=== PATIENT | female | born 1960 | race Caucasian/White ===

== ENCOUNTER 2017-08-24 08:44 | Emergency (ER) | payer SELFPAY ==
[2013-08-07 13:42] VITALS: BMI 22.6
[~2017-08-24 08:44] MED LIST: AMITRIPTYLINE150 MG PO; NORCO 10/325 TA1 TA1 PO; PRILOSEC20 MG PO; VALIUM 2 MG TAB2 MG PO; VENTOLIN HFA18 GM INH
[2017-08-24 09:38] LABS: BASOPHILS 0.3 % (0-2); HEMATOCRIT 41.8 % (36.0-48.0); HEMOGLOBIN 13.9 g/dL (12-16); IMMATURE GRANULOCYTES 0.1 % (0-5); LYMPHOCYTES 17.2 % (15-50); MCH 30.3 pg (26.0-34.0); MCHC 33.3 g/dL (31.0-37.0); MCV 91.3 fL (80.0-100.0); MEAN PLATELET VOLUME 9.8 fL (7.4-10.4); MONOCYTES 4.6 % (2-11); NEUTROPHILS 76.8 % (40-80); PLATELET COUNT 267 10x3/uL (130-400); RBC 4.58 10x6/uL (4.00-5.40); RDW 12.7 % (11.5-14.5); WBC 7.8 10x3/uL (4.8-10.8)
[2017-08-24 10:02] LABS: APPEARANCE CLEAR (CLEAR); BILIRUBIN NEGATIVE (NEGATIVE); COLOR YELLOW (YELLOW); GLUCOSE NEGATIVE (NEGATIVE); KETONE NEGATIVE (NEGATIVE); NITRITE NEGATIVE (NEGATIVE); PROTEIN NEGATIVE (NEGATIVE); SPECIFIC GRAVITY 1.015 (1.005-1.020); UROBILINOGEN NORMAL (NORMAL)
[2017-08-24 11:03] LABS: INR 1.02 (0.85-1.17); PROTIME 13.2 SECONDS (11.6-15.0)
== END 2017-08-24 11:46 | disposition home or self-care (01) ==
LOC: D.ER 08:44
PROVIDERS: Emergency Medicine
DX: K92.2 Gastrointestinal hemorrhage, unspecified (principal); J44.9 Chronic obstructive pulmonary disease, unspecified; F17.200 Nicotine dependence, unspecified, uncomplicated

== ENCOUNTER 2019-03-09 17:11 | Inpatient (IN) | payer MEDICARE ==
[~2019-03-09] VITALS: Ht 165.1 cm; Wt 72.1 kg
[2019-03-09 18:15] VITALS: BP 125/82; BMI 26.5
[2019-03-09 18:39] LABS: BASOPHILS 0.4 % (0-2); EOSINOPHILS 4.1 % (0-7); HEMATOCRIT 37.7 % (36.0-48.0); HEMOGLOBIN 12.4 g/dL (12-16); IMMATURE GRANULOCYTES 3.8 % (0-5); LYMPHOCYTES 20.9 % (15-50); MCH 30.8 pg (26.0-34.0); MCHC 32.9 g/dL (31.0-37.0); MCV 93.5 fL (80.0-100.0); MEAN PLATELET VOLUME 9.3 fL (7.4-10.4); MONOCYTES 8.2 % (2-11); NEUTROPHILS 62.6 % (40-80); PLATELET COUNT 303 10x3/uL (130-400); RBC 4.03 10x6/uL (4.00-5.40); RDW 13.7 % (11.5-14.5); WBC 13.7 10x3/uL (4.8-10.8)
[2019-03-09 19:04] LABS: ANION GAP 9.7 mmol/L (8-16); BILIRUBIN - TOTAL 0.19 mg/dL (0.2-1.3); CALCIUM 8.5 mg/dL (8.5-10.1); CARBON DIOXIDE 31.9 mmol/L (21.0-32.0); CREATININE - SERUM 1.1 mg/dL (0.6-1.3); POTASSIUM - SERUM 3.6 mmol/L (3.5-5.1); PROTEIN - SERUM 6.2 g/dL (6.4-8.2)
[2019-03-09] MEDS ORDERED: XANAX1 MG PO (19:30)
[2019-03-09] MEDS ORDERED: PHENERGAN25 M1 PO (19:31)
[2019-03-09] MEDS ORDERED: MIRALAX17 GM PO (19:32)
[2019-03-09] MEDS ORDERED: HALDOL5 MG PO (19:33)
[2019-03-09] MEDS ORDERED: AMBIEN10 MG PO (19:33)
[2019-03-09] MEDS ORDERED: WELLBUTRIN SR150 MG PO (19:34)
[2019-03-09 20:00] VITALS: BP 115/52
--- NOTE | 2019-03-09 20:00 | NUR ---
PT SITTING UP IN BED, NO SIGNS OF DISTRESS. AUDIBLE WHEEZING HEARD. IV LEFT HAND LEAKING. DC'D WITH CATHETER TIP INTACT. RESITED 22G IV RIGHT HAND X1 ATTEMPT. INFUSING NS @ 75. RESP CAME TO BEDSIDE TO GIVE BREATHING TREATMENT. ALERT AND ORIENTED X4. REQUESTING PAIN MEDICATION FOR PAIN 08/03 IN BACK. PAGEValentina LÓPEZ, RECIEVED ORDERS FOR NORCO 10. GAVE PT ORDERED AND ZOFRAN PER REQUEST, PT STATED SHE WAS NAUSEAS. O2 3L/NC, SOB. INFORMED PT WE NEEDED URINE SAMPLE NEXT TIME SHE WENT TO BATHROOM. VERBALIZED UNDERSTANDING. CL IN REACH, WILL CONT TO MONITOR
[2019-03-10] VITALS: BP 101/56
--- NOTE | 2019-03-10 02:30 | NUR ---
PT REQUESTED AND GIVEN NORCO FOR PAIN 8/10 IN BACK. PT STATES IT IS WORSE WHEN COUGHING. GAVE ZOFRAN FOR NAUSEA. DENIES OTHER NEEDS AT THIS TIME. CL IN REACH, WILL CONT TO MONITOR
[2019-03-10 02:31] LABS: APPEARANCE CLEAR (CLEAR); BILIRUBIN NEGATIVE (NEGATIVE); COLOR YELLOW (YELLOW); GLUCOSE 50 mg/dL (NEGATIVE); KETONE NEGATIVE (NEGATIVE); NITRITE NEGATIVE (NEGATIVE); PROTEIN NEGATIVE (NEGATIVE); UROBILINOGEN NORMAL (NORMAL)
[2019-03-10 04:00] VITALS: BP 102/64
--- NOTE | 2019-03-10 05:00 | NUR ---
PT STATES THIS NIGHT HAS BEEN THE BEST SHE HAS SLEPT IN WEEKS. STATES SHE HAS NOT BEEN SLEEPING WELL DUE TO PAIN AND COUGHING. REQUESTED AND GIVEN JELLO AND COLA. WITHOUT OTHER NEEDS. CL IN REACH, WILL CONT TO MONITOR
[2019-03-10 09:49] VITALS: BP 119/67
[2019-03-10 10:51] LABS: BASOPHILS 0.1 % (0-2); EOSINOPHILS 0 % (0-7); HEMATOCRIT 36.3 % (36.0-48.0); HEMOGLOBIN 11.7 g/dL (12-16); IMMATURE GRANULOCYTES 1.8 % (0-5); LYMPHOCYTES 5.7 % (15-50); MCH 30.2 pg (26.0-34.0); MCHC 32.2 g/dL (31.0-37.0); MCV 93.6 fL (80.0-100.0); MEAN PLATELET VOLUME 9.2 fL (7.4-10.4); MONOCYTES 1.5 % (2-11); NEUTROPHILS 90.9 % (40-80); PLATELET COUNT 284 10x3/uL (130-400); RBC 3.88 10x6/uL (4.00-5.40); RDW 13.5 % (11.5-14.5); WBC 11.6 10x3/uL (4.8-10.8)
[2019-03-10 11:00] LABS: ALBUMIN 2.6 g/dL (3.4-5.0); ANION GAP 12.8 mmol/L (8-16); BILIRUBIN - TOTAL 0.19 mg/dL (0.2-1.3); CALCIUM 8.5 mg/dL (8.5-10.1); CARBON DIOXIDE 27.4 mmol/L (21.0-32.0); PROTEIN - SERUM 5.8 g/dL (6.4-8.2)
[2019-03-10 11:01] LABS: POTASSIUM - SERUM 4.2 mmol/L (3.5-5.1)
[2019-03-10 14:38] VITALS: BP 124/58
--- NOTE | 2019-03-10 17:09 | NUR ---
I have reviewed this patient and I concur with the Shift Assessment completed by the Licensed Practical Nurse today this shift.
[2019-03-10 18:02] VITALS: BP 115/64
[2019-03-10 19:53] VITALS: BP 112/64
--- NOTE | 2019-03-10 23:12 | NUR ---
PT IV RIGHT HAND BURNING AND PAINFUL TO TOUCH. SOME REDNESS AND SWELLING AROUND SITE. STOPPED INFUSION, DC'D WITH CATHETER TIP INTACT. RESITED 22G IV X1 ATTEMPT TO LEFT WRIST. WITHOUT OTHER NEEDS AT THIS TIME. CL IN REACH
[2019-03-11] VITALS: BP 114/58
--- NOTE | 2019-03-11 03:37 | NUR ---
I have reviewed this patient and I concur with the Shift Assessment completed by the Licensed Practical Nurse today this shift.
[2019-03-11 04:00] VITALS: BP 103/64
[2019-03-11 06:52] LABS: ALBUMIN 2.4 g/dL (3.4-5.0); ALKALINE PHOSPHATASE 68 U/L (46-116); ALT (SGPT) 74 U/L (10-68); BILIRUBIN - TOTAL 0.16 mg/dL (0.2-1.3); CALC OSMOLALITY 286 mosm/kg (275-300); CALCIUM 8.3 mg/dL (8.5-10.1); CARBON DIOXIDE 28.3 mmol/L (21.0-32.0); CHLORIDE - SERUM 106 mmol/L (98-107); CREATININE - SERUM 0.8 mg/dL (0.6-1.3); GLUCOSE 150 mg/dL (74-106); MAGNESIUM - SERUM 2.1 mg/dL (1.8-2.4); PHOSPHOROUS 3.4 mg/dL (2.5-4.9); POTASSIUM - SERUM 4.4 mmol/L (3.5-5.1); PROTEIN - SERUM 5.4 g/dL (6.4-8.2); SODIUM 141 mmol/L (136-145); UREA NITROGEN 22 mg/dL (7-18); eGFR NON AFRICAN AMERICAN 78 mL/min (90-120)
[2019-03-11 07:46] LABS: HEMATOCRIT 33.9 % (36.0-48.0); HEMOGLOBIN 10.7 g/dL (12-16); MCH 29.9 pg (26.0-34.0); MCHC 31.6 g/dL (31.0-37.0); MCV 94.7 fL (80.0-100.0); MEAN PLATELET VOLUME 9.7 fL (7.4-10.4); PLATELET COUNT 292 10x3/uL (130-400); RBC 3.58 10x6/uL (4.00-5.40); RDW 13.7 % (11.5-14.5); WBC 20.9 10x3/uL (4.8-10.8)
[2019-03-11 08:14] LABS: LYMPHOCYTES 3 % (15-50); MONOCYTES 3 % (2-11); NEUTROPHILS 92 % (40-80); PLATELET ESTIMATE NORMAL
[2019-03-11 09:34] VITALS: BP 120/74
[2019-03-11 13:09] VITALS: BP 125/68
[2019-03-11 16:26] VITALS: BP 117/68; BP 134/67
[2019-03-11 19:52] VITALS: BP 120/70
--- NOTE | 2019-03-12 01:30 | NUR ---
I have reviewed this patient and I concur with the Shift Assessment completed by the Licensed Practical Nurse today this shift.
[2019-03-12 04:00] VITALS: BP 114/63
[2019-03-12 05:29] LABS: BASOPHILS 0.1 % (0-2); EOSINOPHILS 0.1 % (0-7); HEMOGLOBIN 10.5 g/dL (12-16); IMMATURE GRANULOCYTES 2.2 % (0-5); LYMPHOCYTES 5.7 % (15-50); MCH 30.1 pg (26.0-34.0); MCHC 31.8 g/dL (31.0-37.0); MCV 94.6 fL (80.0-100.0); MEAN PLATELET VOLUME 9.2 fL (7.4-10.4); MONOCYTES 4.5 % (2-11); NEUTROPHILS 87.4 % (40-80); PLATELET COUNT 276 10x3/uL (130-400); RBC 3.49 10x6/uL (4.00-5.40); RDW 14.2 % (11.5-14.5); WBC 19.4 10x3/uL (4.8-10.8)
[2019-03-12 05:42] LABS: ALBUMIN 2.3 g/dL (3.4-5.0); ALKALINE PHOSPHATASE 62 U/L (46-116); ALT (SGPT) 85 U/L (10-68); BILIRUBIN - TOTAL 0.14 mg/dL (0.2-1.3); CALCIUM 8.4 mg/dL (8.5-10.1); CARBON DIOXIDE 29.5 mmol/L (21.0-32.0); CHLORIDE - SERUM 108 mmol/L (98-107); CREATININE - SERUM 0.8 mg/dL (0.6-1.3); GLUCOSE 148 mg/dL (74-106); POTASSIUM - SERUM 4.7 mmol/L (3.5-5.1); PROTEIN - SERUM 5.3 g/dL (6.4-8.2); SODIUM 141 mmol/L (136-145); eGFR NON AFRICAN AMERICAN 78 mL/min (90-120)
[2019-03-12 05:52] LABS: CALC OSMOLALITY 289 mosm/kg (275-300); UREA NITROGEN 30 mg/dL (7-18)
--- NOTE | 2019-03-12 09:00 | NUR ---
PT RESTING NO SIGNS OF DISTRESS NOTED, FAMILY AT BEDSIDE CL IN REACH
[2019-03-12 09:03] VITALS: BP 109/65
[2019-03-12 12:40] VITALS: BP 109/61
--- NOTE | 2019-03-12 15:14 | NUR ---
I have reviewed this patient and I concur with the Shift Assessment completed by the Licensed Practical Nurse today this shift.
[2019-03-12 17:09] VITALS: BP 101/62
--- NOTE | 2019-03-12 19:30 | NUR ---
ALERT AND ORIENTED. HOB ELEVATED. C/O OF BACK PAIN AND STATES "CHRONIC". IMMEDIATELY INQUIRES ABOUT "HYDROS AND COUGH SYRUP" EXPLAINED TIME ALLOTMENTS AND ALSO THAT TESSALON PEARLE AND TORADOL WERE SCHEDULED AND THOSE BOTH HELP WITH PAIN AND COUGHING. PATIENT STATES "I WANT ALL MY MEDICATIONS AT ONE TIME. I WANT TO BE KNOCKED OUT SO I CAN SLEEP." MEDICATION EDUCATION PROVIDED BUT PATIENT VERY PASSIVE WITH TEACHINGS. STATES "WELL WHEN WHAT YOU GIVE ME DOESN'T WORK CAN I HAVE MY OTHER MEDS IN AN HOUR?" INSTRUCTED PT ON SAFE ADMINISTRATION AND THAT THIS NURSE WOULD MONITOR PAIN AND ANXIETY THROUGH OUT NIGHT. PT THEN ASKED ABOUT XANAX AND AMBIEN. STATES "AMBIEN DOESNT WORK IF YOU DONT HAVE SOMETHING TO GO WITH IT. I NEED MY XANAX AND NORCO AT THE SAME TIME." MEDICATION TEACHING APPEARS TO BE UNSUCCESSFUL. INSTRUCTED PATIENT THAT THIS NURSE WILL PROVIDE MEDICATION DEEMED APPROPRIATE PER HOSPITAL POLICY AND/OR DR ORDERS.
[2019-03-12 20:00] VITALS: BP 121/71
--- NOTE | 2019-03-12 23:01 | NUR ---
ADMINSTERED NORCO PER PRN ORDER. PT STATES PAIN IS A 9 DESPITE TORADOL AND AMBIEN ADMINISTRATION 1.5 HOURS AGO. PT REQUESTED TUSSONIEX AT THE SAME TIME INSTRUCTED PATIENT TO ALLOW TIME LAPSE INBETWEEN PAIN PILL AND ORAL SOLUTION BOTH CONTAIN HYDROCODONE/ACETAMINOPHEN. PT AGGRAVATED. STATES SHE WILL TAKE "WHATEVER IS STRONGER!" CALL LIGHT IN REACH.
[2019-03-13] VITALS: BP 130/61
--- NOTE | 2019-03-13 02:13 | NUR ---
I have reviewed this patient and I concur with the Shift Assessment completed by the Licensed Practical Nurse today this shift.
[2019-03-13 03:00] VITALS: BP 121/70
[2019-03-13 06:03] LABS: BASOPHILS 0.1 % (0-2); EOSINOPHILS 0 % (0-7); HEMATOCRIT 33.1 % (36.0-48.0); HEMOGLOBIN 10.6 g/dL (12-16); IMMATURE GRANULOCYTES 3.1 % (0-5); MCH 30.2 pg (26.0-34.0); MCV 94.3 fL (80.0-100.0); MEAN PLATELET VOLUME 9.2 fL (7.4-10.4); MONOCYTES 4.4 % (2-11); NEUTROPHILS 86.4 % (40-80); PLATELET COUNT 270 10x3/uL (130-400); RBC 3.51 10x6/uL (4.00-5.40); RDW 14.4 % (11.5-14.5); WBC 17.2 10x3/uL (4.8-10.8)
[2019-03-13 06:27] LABS: ALBUMIN 2.2 g/dL (3.4-5.0); ALKALINE PHOSPHATASE 57 U/L (46-116); ALT (SGPT) 77 U/L (10-68); BILIRUBIN - TOTAL 0.18 mg/dL (0.2-1.3); CALC OSMOLALITY 290 mosm/kg (275-300); CALCIUM 8.5 mg/dL (8.5-10.1); CARBON DIOXIDE 30.4 mmol/L (21.0-32.0); CHLORIDE - SERUM 108 mmol/L (98-107); CREATININE - SERUM 0.8 mg/dL (0.6-1.3); GLUCOSE 151 mg/dL (74-106); POTASSIUM - SERUM 4.8 mmol/L (3.5-5.1); PROTEIN - SERUM 5.1 g/dL (6.4-8.2); SODIUM 142 mmol/L (136-145); UREA NITROGEN 26 mg/dL (7-18); eGFR NON AFRICAN AMERICAN 78 mL/min (90-120)
[2019-03-13 08:46] VITALS: BP 112/69
[2019-03-13 12:30] VITALS: BP 115/72
--- NOTE | 2019-03-13 13:34 | HP ---
PATIENT: NEDA KEYS MEDICAL RECORD: [id number] ACCOUNT: [id number] LOCATION:D.MS [id number] : 58 ADMISSION DATE: 03/09/19 PCP: CHLOÉ CANTRELL MD HISTORY AND PHYSICAL EXAMINATION HISTORY OF PRESENT ILLNESS: The patient is a 58-year-old white female who was first seen in our clinic towards the end of January with COPD exacerbation. She came back in a week later and was sent to [facility], where she was seen in the Emergency Room and later discharged. She was seen back again a few days ago with worsening symptoms again, declined hospitalization at that time. She comes back in today with marked shortness of breath and audible wheezing. Her chest x-ray reveals no obvious infiltrates. She may have a little pleural effusion. She is on chronic O2 at home. She has never seen a manager of training. She continues to smoke. She is going to require hospitalization again. She is going to be a direct admit. PAST MEDICAL HISTORY: Significant for known COPD, tobacco use, bipolar disorder, lupus, GERD, allergies, anxiety, hyperlipidemia, and chronic insomnia. PAST SURGICAL HISTORY: Previous surgeries include hysterectomy, it looks like. ALLERGIES: AMOXICILLIN. HOME MEDICATIONS: Include DuoNeb updrafts, Nexium, fluticasone, bupropion 150 mg at bedtime, Haldol 5 mg everyday, Combivent inhaler, alprazolam t.i.d., Linville 5 p.r.n., Ventolin inhaler, Wixela Inhub inhaler, simvastatin 20 mg a day, and vitamin D. She has recently been treated with p.o. prednisone and Zithromax. FAMILY HISTORY: Significant for COPD and heart disease. SOCIAL HISTORY: The patient is a smoker. REVIEW OF SYSTEMS: Uncertain of any fever. She is having shortness of breath, wheezing, productive cough, and some right-sided chest pain that is worse with inspiration. PHYSICAL EXAMINATION: VITAL SIGNS: Height 5 feet 5 inches and weight 161. BP 120/84, sat is 92% on 3 liters, pulse is 92, and temperature is 98.4. GENERAL: She is moderately tachypneic with audible wheezes. HEENT: Sclerae nonicteric. HEART: Regular. LUNGS: Bilateral wheezes. ABDOMEN: Soft. No edema. IMPRESSION: COPD exacerbation with failure to treat as an outpatient, tobacco use, history of bipolar disease, history of lupus, and GERD. PLAN: Direct admit to [place]. Pulmonary consult. Pulmonary toilet. See orders for rest of plan. locker room supervisor has been notified and orders have been faxed. TRANSINT:[id number] Voice Confirmation ID: [id number] DOCUMENT ID: [id number] HISTORY AND PHYSICAL [id number] NEDA KEYS MATTHEW DO at 1334 CC: [id number] DICTATION DATE: 03/09/19 1611 PARALEGAL SUPERVISOR: 03/09/19 1716 ADM IN [facility] [address] [id number]
[2019-03-13 14:08] VITALS: Ht 165.1 cm; Wt 72.1 kg
--- NOTE | 2019-03-13 15:58 | MORECARE ---
CASE MANAGEMENT DISCHARGE SUMMARY PATIENT: NEDA KEYS UNIT: [id number] ADM DATE: 03/09/19 AGE: 58 : 58 SEX: F ROOM/BED: D.2235 AUTHOR: GABRIEL BROWN PHYSICIAN: REFERRING PHYSICIAN: CHLOÉ CANTRELL MD DATE OF SERVICE: 03/13/19 Discharge Plan Patient Name: [facility]EDA KEYS [facility] [facility] 1960 Planned Disposition: Home Anticipated Discharge Date: Discharge Date: Expected LOS: Initial Reviewer: [email or web address] Initial Review Date: 03/13/2019 Generated: 03/13/19 4:58 pm DCPIA - Discharge Planning Initial Assessment Updated by [email or web address]: Kimberly Cornejo on 03/13/19 3:57 pm * Is the patient Alert and Oriented? Yes * How many steps to enter\exit or inside your home? 5/0 * PCP Dr. Tyler * Pharmacy [facility] in [place] * Preadmission Environment Home with Family * ADLs Independent * Equipment Nebulizer Other Oxygen * Other Equipment Portable oxygen CPAP * List name and contact numbers for known caregivers / representatives who currently or will assist patient after discharge: Shawna Limon [facility] - [phone] Suellen Ruiz [facility] - [phone] * Verbal permission to speak to the caregivers and representatives has been obtained from the patient. Yes * Community resources currently utilized None * Additional services required to return to the preadmission environment? No * Can the patient safely return to the preadmission environment? Yes * Has this patient been hospitalized within the prior 30 days at any hospital? No Patient Name: NEDA KEYS Page [id number] at 1558 All edits/amendments must be made on the electronic document DICTATION DATE: 03/13/191557 MARKET RESEARCH CONSULTANT: CHRISTIAN 03/13/191557 RPT#: [id number] DC DATE: STATUS: ADM IN [facility] [address] [place] [address] END OF REPORT
--- NOTE | 2019-03-13 16:05 | MORECARE ---
CASE MANAGEMENT DISCHARGE SUMMARY PATIENT: NEDA KEYS UNIT: [id number] ADM DATE: 03/09/19 AGE: 58 : 58 SEX: F ROOM/BED: D.2235 AUTHOR: KEVIN,DOC PHYSICIAN: REFERRING PHYSICIAN: CHLOÉ CANTRELL MD DATE OF SERVICE: 03/13/19 Discharge Plan Patient Name: NEDA KEYS [facility]:[place] : 1960 Planned Disposition: Home Anticipated Discharge Date: Discharge Date: Expected LOS: Initial Reviewer: [email or web address] Initial Review Date: 03/13/2019 Generated: 03/13/19 5:05 pm Comments DCP- Discharge Planning Updated by [id number]: Kimberly Cornejo on 03/13/19 3:[address] Patient Name: NEDA KEYS Admission Status: Elective Accout number: [id number] Admission Date: 03-09-2019 : 1960 Admission Diagnosis:CHRONIC OBSTRUCTIVE PULMONARY DISEASE W (ACUTE) EXACERB Attending: CHLOÉ TYLER Current LOS: 4 Anticipated DC Date: Planned Disposition: Home Primary Insurance: MEDICARE A & B Discharge Planning Comments: CM met with patient to complete initial dc planning assessment. CM educated patient on the CM role and verbal consent given by patient to complete assessment. Patient lives at home with her son. At discharge patient plans to return and feels this is a safe discharge. CM discussed availability of home health, rehab services, and medical equipment. Patient denied known discharge needs at this time. She states she has CPAP, nebulizer, oxygen and portable oxygen and [employer] is her [employer] company. CM will continue to follow and will assist as needed with dc plans/needs. Tape Sewing Machine Operator: Kimberly Cornejo DCPIA - Discharge Planning Initial Assessment Updated by [email or web address]: Kimberly Cornejo on 03/13/19 3:57 pm * Is the patient Alert and Oriented? Yes * How many steps to enter\exit or inside your home? 5/0 * PCP Dr. Tyler * Pharmacy [facility] in [place] * Preadmission Environment Home with Family * ADLs Independent * Equipment Nebulizer Other Oxygen * Other Equipment Portable oxygen CPAP * List name and contact numbers for known caregivers / representatives who currently or will assist patient after discharge: Shawna Limon - DTR - [phone] Suellen Joseph - friend - [phone] * Verbal permission to speak to the caregivers and representatives has been obtained from the patient. Yes * Community resources currently utilized None * Additional services required to return to the preadmission environment? No * Can the patient safely return to the preadmission environment? Yes * Has this patient been hospitalized within the prior 30 days at any hospital? No Last DP export: 03/13/19 2:58 p Patient Name: NEDA KEYS Page 36739 at 1605 All edits/amendments must be made on the electronic document DICTATION DATE: 03/13/191604 CHIEF INNOVATION OFFICER: CHRISTIAN 03/13/191604 RPT#: [id number] DC DATE: STATUS: ADM IN [facility] [address] [place] [address] END OF REPORT
[2019-03-13 17:01] VITALS: BP 124/57
[2019-03-13 21:31] VITALS: BP 124/70
[2019-03-14 00:18] VITALS: BP 113/71
--- NOTE | 2019-03-14 03:28 | NUR ---
IV INFULTRATED. RESITED IV LT HAND 20G. ATTEMPTS X1. PT TOLERATED WELL.
[2019-03-14 05:03] VITALS: BP 115/61
[2019-03-14 05:51] LABS: BASOPHILS 0.1 % (0-2); EOSINOPHILS 0 % (0-7); HEMOGLOBIN 11.3 g/dL (12-16); IMMATURE GRANULOCYTES 4.5 % (0-5); LYMPHOCYTES 7.6 % (15-50); MCH 29.6 pg (26.0-34.0); MCHC 32.3 g/dL (31.0-37.0); MCV 91.6 fL (80.0-100.0); MEAN PLATELET VOLUME 9.4 fL (7.4-10.4); NEUTROPHILS 82.8 % (40-80); PLATELET COUNT 285 10x3/uL (130-400); RBC 3.82 10x6/uL (4.00-5.40); RDW 14.3 % (11.5-14.5); WBC 15.7 10x3/uL (4.8-10.8)
--- NOTE | 2019-03-14 05:54 | NUR ---
I have reviewed this patient and I concur with the Shift Assessment completed by the Licensed Practical Nurse today this shift.
--- NOTE | 2019-03-14 05:55 | NUR ---
I have reviewed this patient and I concur with the Shift Assessment completed by the Licensed Practical Nurse today this shift.
[2019-03-14 06:35] LABS: ALBUMIN 2.3 g/dL (3.4-5.0); ALKALINE PHOSPHATASE 55 U/L (46-116); ALT (SGPT) 68 U/L (10-68); BILIRUBIN - TOTAL 0.29 mg/dL (0.2-1.3); CALC OSMOLALITY 288 mosm/kg (275-300); CALCIUM 8.2 mg/dL (8.5-10.1); CARBON DIOXIDE 31.1 mmol/L (21.0-32.0); CHLORIDE - SERUM 104 mmol/L (98-107); CREATININE - SERUM 0.8 mg/dL (0.6-1.3); GLUCOSE 140 mg/dL (74-106); POTASSIUM - SERUM 4.2 mmol/L (3.5-5.1); PROTEIN - SERUM 5.3 g/dL (6.4-8.2); SODIUM 141 mmol/L (136-145); UREA NITROGEN 30 mg/dL (7-18); eGFR NON AFRICAN AMERICAN 78 mL/min (90-120)
[2019-03-14 08:14] LABS: IMMUNOGLOBULIN A 208 mg/dL (87-352)
[2019-03-14 08:43] VITALS: BP 133/82
[2019-03-14] MEDS ORDERED: DALIRESP500 MCG PO ×2 (11:35→11:44)
[2019-03-14] MEDS ORDERED: FLUTICASONE PRO16 GM NASAL (11:36)
[2019-03-14] MEDS ORDERED: PULMICORT0.5 MG/21 UPD (11:44)
[2019-03-14] MEDS ORDERED: DOXYCYCLINE HY100 M2 PO (11:44)
[2019-03-14] MEDS ORDERED: SINGULAIR10 MG PO (11:44)
[2019-03-14] MEDS ORDERED: PREDNISONE10 MG PO (11:47)
--- NOTE | 2019-03-14 12:32 | MORECARE ---
CASE MANAGEMENT DISCHARGE SUMMARY PATIENT: NEDA KEYS UNIT: [id number] ADM DATE: 03/09/19 AGE: 58 : 58 SEX: F ROOM/BED: D.2235 AUTHOR: KEVIN,DOC PHYSICIAN: REFERRING PHYSICIAN: CHLOÉ CANTRELL MD DATE OF SERVICE: 03/14/19 Discharge Plan Patient Name: NEDA KEYS Facility[facility]:[place] : 1960 Planned Disposition: Home Anticipated Discharge Date: Discharge Date: Expected LOS: Initial Reviewer: [email or web address] Initial Review Date: 03/13/2019 Generated: 03/14/19 1:32 pm Comments DCP- Discharge Planning Updated by [email or web address]: Kimberly Cornejo on 03/14/19 11:[address] Patient Name: NEDA KEYS Encounter No: [id number] : 1960 Primary Insurance: MEDICARE A & B Anticipated DC Date: Planned Disposition: Home External Planned Provider: : DCP follow-up note: Patient and family in agreement with discharge plan. No changes to plan. Family in room to take her home. Denies needs. No needs identified. She has portable oxygen in room for transport home. Case management will follow and assist as needed. Kimberly Cornejo DCP- Discharge Planning Updated by [id number]: Kimberly Conrejo on 03/13/19 3:[address] Patient Name: NEDA KEYS Admission Status: Elective Accout number: [id number] Admission Date: 03-09-2019 : 1960 Admission Diagnosis:CHRONIC OBSTRUCTIVE PULMONARY DISEASE W (ACUTE) EXACERB Attending: CHLOÉ TYLER Current LOS: 4 Anticipated DC Date: Planned Disposition: Home Primary Insurance: MEDICARE A & B Discharge Planning Comments: CM met with patient to complete initial dc planning assessment. CM educated patient on the CM role and verbal consent given by patient to complete assessment. Patient lives at home with her son. At discharge patient plans to return and feels this is a safe discharge. CM discussed availability of home health, rehab services, and medical equipment. Patient denied known discharge needs at this time. She states she has CPAP, nebulizer, oxygen and portable oxygen and [employer] is her [employer] company. CM will continue to follow and will assist as needed with dc plans/needs. Fur Storage Clerk: Kimberly Chantal DCPIA - Discharge Planning Initial Assessment Updated by [email or web address]: Kimberly Cornejo on 03/13/19 3:57 pm * Is the patient Alert and Oriented? Yes * How many steps to enter\exit or inside your home? 5/0 * PCP Dr. Tyler * Pharmacy [facility] in [place] * Preadmission Environment Home with Family * ADLs Independent * Equipment Nebulizer Other Oxygen * Other Equipment Portable oxygen CPAP * List name and contact numbers for known caregivers / representatives who currently or will assist patient after discharge: Shawna Limon - DTR - [phone] Suellen Ruiz [facility] - [phone] * Verbal permission to speak to the caregivers and representatives has been obtained from the patient. Yes * Community resources currently utilized None * Additional services required to return to the preadmission environment? No * Can the patient safely return to the preadmission environment? Yes * Has this patient been hospitalized within the prior 30 days at any hospital? No Coverage Notice Reviewer: [email or web address] - Kimberly Cornejo Notice Issued Date-Time: 03/14/2019 12:28 Notice Type: IM Discharge Notice Notice Delivered To: Patient Relationship to Patient: Self Clinique Counter Manager Name: Delivery Method: HAND - Hand Delivered Celina Days: Prior Verbal Notification: Recipient Understood Notice: Yes Recipient Signature: Yes Med Rec Note Co-signed by Attending: Coverage Notice Comment: IMM explained, signed, given, placed copy in MR Last DP export: 03/13/19 3:05 p Patient Name: NEDA KEYS Page 68211 at 1232 All edits/amendments must be made on the electronic document DICTATION DATE: 03/14/19 1232 MELTER SUPERVISOR ELECTRIC ARC FURNACE: CHRISTIAN 03/14/19 1232 RPT#: [id number] DC DATE: STATUS: ADM IN [facility] [address] [place] [address] END OF REPORT
--- NOTE | 2019-03-14 13:21 | NUR ---
DISCHARGE INSTRUCTIONS GIVEN. PATIENT VERBALIZED UNDERSTANDING. IV THERAPY DC'ED WITH TIP INTACT. WHEELED OUT BY FAMILY
[2019-03-15 15:12] LABS: IGG SUBCLASS 1 412 mg/dL (248-810); IGG SUBCLASS 2 93 mg/dL (130-555); IGG SUBCLASS 3 26 mg/dL (15-102); IGG SUBCLASS 4 12 mg/dL (2-96); IMMUNOGLOBULIN G 682 mg/dL (700-1600)
== END 2019-03-14 13:22 | disposition home or self-care (01) | DRG 190 ==
LOC: D.MS 17:11
PROVIDERS: Emergency Medicine; Family Medicine; Internal Medicine Pulmonary Disease; ADMIT Family Medicine; ATTEND Family Medicine
DX: J44.1 Chronic obstructive pulmonary disease with (acute) exacerbation (principal); J96.01 Acute respiratory failure with hypoxia; J18.9 Pneumonia, unspecified organism; F17.213 Nicotine dependence, cigarettes, with withdrawal; J47.0 Bronchiectasis with acute lower respiratory infection; Z99.81 Dependence on supplemental oxygen; Z87.891 Personal history of nicotine dependence; F31.9 Bipolar disorder, unspecified; K21.9 Gastro-esophageal reflux disease without esophagitis; E78.5 Hyperlipidemia, unspecified

== ENCOUNTER 2019-07-16 23:38 | Emergency (ER) | payer MEDICARE ==
[~2019-07-16] VITALS: Ht 165.1 cm; Wt 65.9 kg
[~2019-07-16 23:38] MED LIST changes: +AMBIEN10 MG PO; +DALIRESP500 MCG PO; +DOXYCYCLINE HY100 M2 PO; +FLUTICASONE PRO16 GM NASAL; +HALDOL5 MG PO; +MIRALAX17 GM PO; +PHENERGAN25 M1 PO; +PREDNISONE10 MG PO; +PULMICORT0.5 MG/21 UPD; +SINGULAIR10 MG PO; +WELLBUTRIN SR150 MG PO; +XANAX1 MG PO
[2019-07-16 23:43] VITALS: Ht 165.1 cm; Wt 65.9 kg
[2019-07-17 00:05] LABS: HEMATOCRIT 39.2 % (36.0-48.0); HEMOGLOBIN 12.9 g/dL (12-16); LYMPHOCYTES 33.2 % (15-50); MCH 29.1 pg (26.0-34.0); MCHC 32.9 g/dL (31.0-37.0); MCV 88.3 fL (80.0-100.0); MEAN PLATELET VOLUME 8.5 fL (7.4-10.4); NEUTROPHILS 36.1 % (40-80); PLATELET COUNT 334 10x3/uL (130-400); RBC 4.44 10x6/uL (4.00-5.40); RDW 12.5 % (11.5-14.5); WBC 5.3 10x3/uL (4.8-10.8)
[2019-07-17 00:13] LABS: APTT 26.6 SECONDS (22.8-39.4); INR 1.01 (0.85-1.17); PROTIME 12.8 SECONDS (11.6-15.0)
[2019-07-17 00:22] LABS: ALBUMIN 2.9 g/dL (3.4-5.0); ALKALINE PHOSPHATASE 95 U/L (46-116); ALT (SGPT) 18 U/L (10-68); BILIRUBIN - TOTAL 0.16 mg/dL (0.2-1.3); CALC OSMOLALITY 285 mosm/kg (275-300); CALCIUM 8.4 mg/dL (8.5-10.1); CARBON DIOXIDE 31.1 mmol/L (21.0-32.0); CHLORIDE - SERUM 108 mmol/L (98-107); CREATININE - SERUM 0.7 mg/dL (0.6-1.3); POTASSIUM - SERUM 3.9 mmol/L (3.5-5.1); PROTEIN - SERUM 6.3 g/dL (6.4-8.2); SODIUM 144 mmol/L (136-145); UREA NITROGEN 11 mg/dL (7-18); eGFR NON AFRICAN AMERICAN 90 mL/min (90-120)
[2019-07-17 00:32] LABS: GLUCOSE 92 mg/dL (74-106)
[2019-07-17 00:37] LABS: CKMB 0.6 U/L (0.0-3.6); CREATINE KINASE 24 UL (21-215)
[2019-07-17 00:38] LABS: PRO BNP 0 pg/mL (0-125); TROPONIN-I < 0.017 ng/mL (0.000-0.060)
[2019-07-17] MEDS ORDERED: TESSALON PERLE100 MG PO (03:00)
[2019-07-17] MEDS ORDERED: HYDROCODON-ACE1 EAC7 PO (03:02)
[2019-07-17 04:00] VITALS: BP 95/53
== END 2019-07-17 04:00 | disposition home or self-care (01) ==
LOC: D.ER 23:38
PROVIDERS: Emergency Medicine
DX: J44.9 Chronic obstructive pulmonary disease, unspecified (principal); R91.1 Solitary pulmonary nodule; R06.02 Shortness of breath; F17.200 Nicotine dependence, unspecified, uncomplicated

== ENCOUNTER 2021-02-04 09:56 | Emergency (ER) | payer MEDICARE ==
[~2021-02-04] VITALS: Ht 165.1 cm; Wt 65.9 kg
[~2021-02-04 09:56] MED LIST changes: +HYDROCODON-ACE1 EAC7 PO; +TESSALON PERLE100 MG PO
[2021-02-04 10:08] VITALS: Ht 165.1 cm; Wt 65.9 kg
[2021-02-04 14:10] VITALS: BP 107/66
== END 2021-02-04 14:40 | disposition home or self-care (01) ==
LOC: D.ER 09:56
DX: R51.9 Headache, unspecified (principal); M25.512 Pain in left shoulder; M54.2 Cervicalgia; W19.XXXA Unspecified fall, initial encounter; Y93.9 Activity, unspecified; Y92.9 Unspecified place or not applicable; M25.551 Pain in right hip; M25.552 Pain in left hip; M32.9 Systemic lupus erythematosus, unspecified; J44.9 Chronic obstructive pulmonary disease, unspecified; K21.9 Gastro-esophageal reflux disease without esophagitis; Z72.0 Tobacco use